=== PATIENT | female | born 1955 | race African-American/Black ===

== ENCOUNTER 2016-10-10 18:02 | Inpatient (IN) | payer MEDICAID ==
[~2016-10-10] VITALS: Ht 170.2 cm; Wt 132.1 kg
[2016-10-10] MEDS ORDERED: HYDROcodone-ACET 10/325MG TAB PO ONE (23:30)
[2016-10-10 23:42] LABS: Basophils # (auto) 0 uL; Basophils % (auto) 0.3 % (0.0-2.0); DEFINITIVE VIEW TRANSMISSION; Eosinophils # (auto) 0 uL; Eosinophils % (auto) 0.6 % (0.0-7.0); Hematocrit 38.3 % (36.0-46.0); Hemoglobin 11.7 g/dL (12.2-16.2); Lymphocytes # (auto) 1.7 uL; Lymphocytes % (auto) 28.7 % (10.0-50.0); Mean Corpuscular Hemoglobin 28.3 pg (28.0-32.0); Mean Corpuscular Hgb Conc. 30.5 g/dL (32.0-36.0); Mean Corpuscular Volume 92.8 fL (80.0-100.0); Mean Platelet Volume 7.6 fL (7.4-10.4); Monocytes # (auto) 0.1 uL; Monocytes % (auto) 1.1 % (0.0-12.0); Neutrophils # (auto) 4.2 uL; Neutrophils % (auto) 69.3 % (37.0-80.0); Platelet Count (auto) 229 10^3/uL (140-450); White Blood Cell 6.1 10^3/uL (4.4-10.8)
[2016-10-11 00:05] LABS: Partial Thromboplastin Time 24.9 sec (22.64-33.71); Prothrombin Time 11.9 sec (9.37-12.3)
[2016-10-11 00:06] LABS: Albumin 3.6 g/dL (3.4-5.0); BUN/Creatinine Ratio 9.5; Potassium 3.3 mmol/L (3.5-5.1)
[2016-10-11 00:08] LABS: Bilirubin, Total 0.9 mg/dL (0.2-1.0); Total Protein 7.3 g/dL (6.4-8.2)
[2016-10-11 00:09] LABS: INR 1.16 (0.9-1.15)
[2016-10-11 00:11] LABS: B-Type Natriuretic Peptide 41.19 pg/mL (0-100)
[2016-10-11 00:14] LABS: Temperature: 22.7 C (20.0-25.0)
[2016-10-11] MEDS ORDERED: POTASSIUM CHL 20 Meq TABLET PO ONE (04:45)
[2016-10-11] MEDS ORDERED: FUROSEMIDE 20 MG/2 ML VIAL IV ONE (04:45)
[2016-10-11 05:43] LABS: Urine RBC None Seen /hpf (0 - 4)
[2016-10-11 05:57] LABS: Urine Bilirubin Negative (Negative); Urine Blood Negative /uL (Negative); Urine Color Yellow (Yellow); Urine Glucose Normal (Normal); Urine Ketone TRACE (Negative); Urine Mucus FEW (None Seen); Urine Nitrite Negative (Negative); Urine Squamous Epithelial Cell FEW /hpf (<5); Urine pH 7.5 (5.0-8.0)
[2016-10-11] MEDS ORDERED: ONDANSETRON HCL 4 MG/2 ML VIAL IV PRN (06:30)
[2016-10-11] MEDS ORDERED: TEMAZEPAM 15 MG CAP PO PRN (06:30)
[2016-10-11] MEDS ORDERED: HYDROcodone-ACET 5/325MG TAB PO PRN (06:30)
[2016-10-11] MEDS ORDERED: DEXTROSE (50%) 50ML SYRG IV PRN (06:30)
[2016-10-11] MEDS ORDERED: ACETAMINOPHEN 325 MG TAB PO PRN (06:30)
[2016-10-11] MEDS ORDERED: ENOXAPARIN SOD 40 MG/0.4 ML SYRINGE SC SCH (10:00)
[2016-10-11 10:15] VITALS: BP 144/87
[2016-10-11] MEDS ORDERED: ALLO300T2 PO (10:57)
[2016-10-11] MEDS ORDERED: PRAM0.12 PO (11:17)
[2016-10-11] MEDS ORDERED: ENAL20TA93 PO (11:17)
[2016-10-11] MEDS ORDERED: OME20T PO (11:17)
[2016-10-11] MEDS ORDERED: BISA5TAB72 PO (11:17)
[2016-10-11] MEDS ORDERED: ERGO1CAP23 PO (11:17)
[2016-10-11] MEDS ORDERED: ASPI-231 PO (11:17)
[2016-10-11] MEDS ORDERED: PROM25TA5 PO (11:17)
[2016-10-11] MEDS ORDERED: FURO40TA4 PO (11:17)
[2016-10-11] MEDS ORDERED: HYDR-4072 PO (11:17)
[2016-10-11] MEDS ORDERED: GABA-339 PO (11:17)
[2016-10-11] MEDS ORDERED: CITA-77 PO (11:17)
[2016-10-11] MEDS ORDERED: SERDISK IN (11:24)
[2016-10-11] MEDS ORDERED: IPRIH IN (11:24)
[2016-10-11] MEDS ORDERED: ACLI1AER2 IN (11:24)
[2016-10-11] MEDS ORDERED: PRAV20TA3 PO (11:24)
[2016-10-11] MEDS ORDERED: FLUT250A IN (11:24)
[2016-10-11] MEDS ORDERED: LIDO2SOL18 MT (11:27)
[2016-10-11] MEDS: InsuLIN REG 1unit/0.01ml Soln (100units/ml) SC SCH ×3 (12:00→23:53)
[2016-10-11] MEDS: ALLOPURINOL 100 MG TAB PO SCH (12:44)
[2016-10-11] MEDS: cefTRIAXone 1GM/50ML D5W 50 ML IV SCH (12:45)
[2016-10-11] MEDS: FAMOTIDINE 20 MG TAB PO SCH ×2 (12:46→22:14)
[2016-10-11] MEDS: FUROSEMIDE 40 MG TAB PO SCH (12:46)
[2016-10-11] MEDS: ENALAPRIL MALEATE 10 MG TAB PO SCH (12:47)
[2016-10-11] MEDS: ACCU-CHEK COMFORT CURVE STRIP VI SCH ×3 (12:48→23:53)
[2016-10-11 13:00] VITALS: BP 135/76
[2016-10-11] MEDS: GABAPENTIN 300 MG CAP PO SCH ×2 (16:11→22:14)
[2016-10-11 17:00] VITALS: BP 146/80
[2016-10-11] MEDS: HYDROcodone-ACET 10/325MG TAB PO PRN ×2 (17:33→22:24)
[2016-10-11 22:00] VITALS: BP 117/69
[2016-10-11] MEDS: PRAVASTATIN SODIUM 20 MG TAB PO SCH (22:14)
[2016-10-11] MEDS: ENOXAPARIN SOD 40 MG/0.4 ML SYRINGE SC SCH (22:14)
[2016-10-12] MEDS: HYDROcodone-ACET 10/325MG TAB PO PRN ×4 (04:54→22:30)
[2016-10-12 05:47] VITALS: BP 111/63
[2016-10-12 06:04] LABS: Basophils # (auto) 0 uL; Basophils % (auto) 0.4 % (0.0-2.0); DEFINITIVE VIEW TRANSMISSION; Eosinophils # (auto) 0.2 uL; Eosinophils % (auto) 2.3 % (0.0-7.0); Hematocrit 38.2 % (36.0-46.0); Hemoglobin 11.3 g/dL (12.2-16.2); Lymphocytes % (auto) 42.6 % (10.0-50.0); Mean Corpuscular Hgb Conc. 29.5 g/dL (32.0-36.0); Mean Corpuscular Volume 94.7 fL (80.0-100.0); Mean Platelet Volume 8.3 fL (7.4-10.4); Monocytes # (auto) 0.5 uL; Monocytes % (auto) 7.7 % (0.0-12.0); Neutrophils # (auto) 3.3 uL; Platelet Count (auto) 228 10^3/uL (140-450); Red Cell Distribution Width 16.6 % (11.6-16.0)
[2016-10-12] MEDS: GABAPENTIN 300 MG CAP PO SCH ×3 (06:14→22:29)
[2016-10-12] MEDS: InsuLIN REG 1unit/0.01ml Soln (100units/ml) SC SCH ×3 (06:27→18:00)
[2016-10-12] MEDS: ACCU-CHEK COMFORT CURVE STRIP VI SCH ×3 (06:28→18:07)
[2016-10-12 06:33] LABS: Potassium 3.2 mmol/L (3.5-5.1)
[2016-10-12 06:46] LABS: Albumin 3.3 g/dL (3.4-5.0); Bilirubin, Total 0.4 mg/dL (0.2-1.0); Calcium 8.4 mg/dL (8.5-10.1)
[2016-10-12 08:00] VITALS: BP 102/74
[2016-10-12] MEDS: cefTRIAXone 1GM/50ML D5W 50 ML IV SCH (08:19)
[2016-10-12] MEDS: FUROSEMIDE 40 MG TAB PO SCH (08:31)
[2016-10-12] MEDS: ALLOPURINOL 100 MG TAB PO SCH (08:32)
[2016-10-12] MEDS: ENALAPRIL MALEATE 10 MG TAB PO SCH (08:32)
[2016-10-12] MEDS: FAMOTIDINE 20 MG TAB PO SCH ×2 (08:32→22:29)
[2016-10-12] MEDS: ENOXAPARIN SOD 40 MG/0.4 ML SYRINGE SC SCH ×2 (08:50→22:30)
[2016-10-12 09:00] VITALS: BP 102/74
[2016-10-12 13:00] VITALS: BP 120/59
[2016-10-12 17:00] VITALS: BP 120/59
[2016-10-12 22:00] VITALS: BP 108/61
[2016-10-12] MEDS: PRAVASTATIN SODIUM 20 MG TAB PO SCH (22:29)
[2016-10-12] MEDS: POTASSIUM CHL 20 Meq TABLET PO SCH (22:30)
[2016-10-13 06:00] VITALS: BP 108/65
[2016-10-13] MEDS: InsuLIN REG 1unit/0.01ml Soln (100units/ml) SC SCH ×4 (06:00→17:49)
[2016-10-13] MEDS: HYDROcodone-ACET 10/325MG TAB PO PRN ×3 (06:17→20:44)
[2016-10-13] MEDS: GABAPENTIN 300 MG CAP PO SCH ×3 (06:17→22:38)
[2016-10-13] MEDS: ACCU-CHEK COMFORT CURVE STRIP VI SCH ×4 (06:17→17:45)
[2016-10-13 06:34] LABS: Albumin 3.1 g/dL (3.4-5.0); BUN/Creatinine Ratio 18.9; Calcium 8.6 mg/dL (8.5-10.1)
[2016-10-13 06:37] LABS: Bilirubin, Total 0.2 mg/dL (0.2-1.0); Total Protein 6.7 g/dL (6.4-8.2)
[2016-10-13 07:00] VITALS: BP 101/55
[2016-10-13] MEDS: FUROSEMIDE 40 MG TAB PO SCH (10:00)
[2016-10-13] MEDS: ENALAPRIL MALEATE 10 MG TAB PO SCH (10:00)
[2016-10-13] MEDS: cefTRIAXone 1GM/50ML D5W 50 ML IV SCH (10:34)
[2016-10-13] MEDS: POTASSIUM CHL 20 Meq TABLET PO SCH ×2 (10:34→22:39)
[2016-10-13] MEDS: FAMOTIDINE 20 MG TAB PO SCH ×2 (10:35→22:38)
[2016-10-13] MEDS: ENOXAPARIN SOD 40 MG/0.4 ML SYRINGE SC SCH ×2 (10:35→22:37)
[2016-10-13] MEDS: ALLOPURINOL 100 MG TAB PO SCH (10:35)
[2016-10-13 11:00] VITALS: BP 127/72
[2016-10-13 14:23] LABS: Basophils # (auto) 0 uL; Basophils % (auto) 0.6 % (0.0-2.0); DEFINITIVE VIEW TRANSMISSION; Eosinophils # (auto) 0.2 uL; Eosinophils % (auto) 2.5 % (0.0-7.0); Hemoglobin 11.2 g/dL (12.2-16.2); Lymphocytes % (auto) 31.6 % (10.0-50.0); Mean Corpuscular Hemoglobin 28.6 pg (28.0-32.0); Mean Corpuscular Hgb Conc. 30.4 g/dL (32.0-36.0); Mean Corpuscular Volume 94.3 fL (80.0-100.0); Mean Platelet Volume 8.7 fL (7.4-10.4); Monocytes # (auto) 0.5 uL; Monocytes % (auto) 7.3 % (0.0-12.0); Neutrophils # (auto) 3.6 uL; Platelet Count (auto) 183 10^3/uL (140-450); Red Cell Distribution Width 16.6 % (11.6-16.0); White Blood Cell 6.3 10^3/uL (4.4-10.8)
[2016-10-13 14:26] LABS: Albumin 3.3 g/dL (3.4-5.0); BUN/Creatinine Ratio 18.1; Calcium 8.6 mg/dL (8.5-10.1); Potassium 4.5 mmol/L (3.5-5.1)
[2016-10-13 14:29] LABS: Bilirubin, Total 0.3 mg/dL (0.2-1.0); Total Protein 6.9 g/dL (6.4-8.2)
[2016-10-13 16:45] VITALS: BP 128/67
[2016-10-13 22:00] VITALS: BP 110/60
[2016-10-13] MEDS: PRAVASTATIN SODIUM 20 MG TAB PO SCH (22:38)
[2016-10-14] MEDS: InsuLIN REG 1unit/0.01ml Soln (100units/ml) SC SCH ×2 (00:18→05:52)
[2016-10-14] MEDS: ACCU-CHEK COMFORT CURVE STRIP VI SCH ×2 (00:21→05:52)
[2016-10-14] MEDS: HYDROcodone-ACET 10/325MG TAB PO PRN ×3 (00:53→09:31)
[2016-10-14 05:30] VITALS: BP 95/46
[2016-10-14] MEDS: GABAPENTIN 300 MG CAP PO SCH (05:55)
[2016-10-14] MEDS: cefTRIAXone 1GM/50ML D5W 50 ML IV SCH (09:00)
[2016-10-14 09:39] VITALS: BP 118/67
[2016-10-14] MEDS: FAMOTIDINE 20 MG TAB PO SCH (10:00)
[2016-10-14] MEDS: ENOXAPARIN SOD 40 MG/0.4 ML SYRINGE SC SCH (10:00)
[2016-10-14] MEDS: ENALAPRIL MALEATE 10 MG TAB PO SCH (10:00)
[2016-10-14] MEDS: POTASSIUM CHL 20 Meq TABLET PO SCH (10:00)
[2016-10-14] MEDS: FUROSEMIDE 40 MG TAB PO SCH (10:00)
[2016-10-14] MEDS: ALLOPURINOL 100 MG TAB PO SCH (10:00)
[2016-10-14 10:18] VITALS: BP 118/67
== END 2016-10-14 11:00 | disposition home or self-care (01) | DRG 140 ==
LOC: ER 18:09 → OVERFLOW 18:10 → TELE-E-ADS 10-11 07:51 → WEST WING 10-11 10:11 → TELE-WESTW 10-11 21:10
PROVIDERS: ADMIT Internal Medicine; ATTEND Internal Medicine
DX: J44.1 Chronic obstructive pulmonary disease with (acute) exacerbation (principal); I50.33 Acute on chronic diastolic (congestive) heart failure; J45.909 Unspecified asthma, uncomplicated; Z68.42 Body mass index [BMI] 45.0-49.9, adult; E11.9 Type 2 diabetes mellitus without complications; I11.0 Hypertensive heart disease with heart failure; E87.6 Hypokalemia; E66.01 Morbid (severe) obesity due to excess calories; M79.605 Pain in left leg
CPT/HCPCS: 36415; 71010; 80053; 81001; 82962; 83880; 84484; 85025; 85379; 85610; 85730; 93005; 93306; 96374; J0696; J1815